=== PATIENT | female | born 1965 | race African-American/Black ===

== ENCOUNTER 2023-02-15 16:54 | Inpatient (IN) | payer OTHER ==
[2023-02-15 18:29] VITALS: BMI 46.5
[2023-02-15] MEDS ORDERED: NICOTINE POLACRILEX 2 MG GUM BUC PRN (20:01)
[2023-02-15] MEDS ORDERED: guaiFENesin 600 MG TABLET.ER (FP) PO PRN (20:01)
[2023-02-15] MEDS ORDERED: LOPERAMIDE HCL 2 MG CAPSULE PO PRN (20:01)
[2023-02-15] MEDS ORDERED: AMMONIUM LACTATE 12% LOTION 225 GM BOTTLE TP PRN (20:01)
[2023-02-15] MEDS ORDERED: NALOXONE HCL (KLOXXADO) 8 MG SPRAY NS PRN (20:01)
[2023-02-15] MEDS ORDERED: IBUPROFEN 400 MG TABLET (FP) PO PRN (20:01)
[2023-02-15] MEDS ORDERED: NALOXONE HCL 0.4 MG/ML VIAL IM PRN (20:01)
[2023-02-15] MEDS ORDERED: POLYETHYLENE GLYCOL (HEALTHYLAX) 3350 17 GM PACKET PO PRN (20:01)
[2023-02-15] MEDS ORDERED: BENZONATATE 200 MG CAPSULE PO PRN (20:01)
[2023-02-15] MEDS ORDERED: BENZOCAINE/MENTHOL (CHLORASEPTIC ) LOZENGE MM PRN (20:01)
[2023-02-15] MEDS ORDERED: TUBERCULIN PPD 5 TU/0.1ML SYRINGE (IN PATIENT USE ONLY) ID ONE (21:00)
[2023-02-15] MEDS ORDERED: MELATONIN 5 MG TABLETS PO SCH (22:00)
[2023-02-15] MEDS: THIAMINE HCL 100 MG TABLET (FP) PO SCH (22:08)
[2023-02-16] MEDS: PRENATAL VITAMINS W/ FOLIC ACID TABLET (FP) PO SCH (10:12)
[2023-02-16] MEDS: ACETAMINOPHEN 325 MG TABLET (FP) PO PRN (10:13)
[2023-02-16] MEDS: NICOTINE 14 MG/24 HOURS TOPICAL PATCH TD SCH (10:14)
[2023-02-16 12:54] LABS: POTASSIUM 3.6 mmol/L (3.5-5.1)
[2023-02-16 12:56] LABS: CALCIUM 8.1 mg/dL (8.5-10.1)
[2023-02-16 12:57] LABS: ALBUMIN 2.5 g/dl (3.4-5.0); BLOOD UREA NITROGEN 15.3 mg/dL (7-18)
[2023-02-16 13:01] LABS: BILIRUBIN,TOTAL 0.6 mg/dL (0.2-1); CREATININE 0.6 mg/dL (0.55-1.3)
[2023-02-16] MEDS ORDERED: PATIENT'S OWN MEDICATION (NON-FORMULARY) (Dolutegravir/Rilpivirine [Juluca 50-25 Mg Tablet PO SCH (13:15)
[2023-02-16 13:19] LABS: HEMATOCRIT 31.6 % (32.4-45.2); HEMOGLOBIN 10.6 GM/dL (10.7-15.3); MCH 27.5 pg (25.7-33.7); MCHC 33.6 g/dl (32.0-36.0); MEAN CELL VOLUME 81.9 fl (80-96); PLATELET COUNT 222 10^3/uL (134-434); RBC 3.86 M/mm3 (3.60-5.2); RDW 13.8 % (11.6-15.6); WHITE BLOOD COUNT 5.8 K/mm3 (4.0-10.0)
[2023-02-16] MEDS ORDERED: DOLUTEGRAVIR SODIUM 50 MG TABLET (NON-FORMULARY) PO ONE (13:45)
[2023-02-16] MEDS ORDERED: RILPIVIRINE HCL 25 MG TABLET PO ONE (13:45)
[2023-02-16] MEDS: THIAMINE HCL 100 MG TABLET (FP) PO SCH (21:27)
[2023-02-16] MEDS: BENZTROPINE MESYLATE 1 MG TABLET PO SCH (21:27)
[2023-02-16] MEDS: HALOPERIDOL 5 MG TABLET PO SCH (21:27)
[2023-02-16] MEDS: QUEtiapine FUMARATE 50 MG TABLET PO SCH (21:27)
[2023-02-16] MEDS: IBUPROFEN 600 MG TABLET (FP) PO PRN (21:29)
[2023-02-16] MEDS ORDERED: HALOPERIDOL 5 MG TABLET PO SCH (22:00)
[2023-02-17] MEDS: RILPIVIRINE HCL 25 MG TABLET PO SCH (07:14)
[2023-02-17] MEDS: DOLUTEGRAVIR SODIUM 50 MG TABLET (NON-FORMULARY) PO SCH (07:14)
[2023-02-17] MEDS: PRENATAL VITAMINS W/ FOLIC ACID TABLET (FP) PO SCH (10:08)
[2023-02-17] MEDS: NICOTINE 14 MG/24 HOURS TOPICAL PATCH TD SCH (10:08)
[2023-02-17] MEDS: MAGNESIUM HYDROX 2400MG/30ML ORAL SUSPENSION 30 ML CUP PO PRN (13:15)
[2023-02-17] MEDS: MAG HYDROX/AL HYDROX/SIMETH 30 ML UNIT-DOSE CUP PO PRN (16:34)
[2023-02-17] MEDS: THIAMINE HCL 100 MG TABLET (FP) PO SCH (21:23)
[2023-02-17] MEDS: QUEtiapine FUMARATE 50 MG TABLET PO SCH (21:23)
[2023-02-17] MEDS: HALOPERIDOL 5 MG TABLET PO SCH (21:23)
[2023-02-17] MEDS: BENZTROPINE MESYLATE 1 MG TABLET PO SCH (21:23)
[2023-02-18] MEDS: DOLUTEGRAVIR SODIUM 50 MG TABLET (NON-FORMULARY) PO SCH (07:11)
[2023-02-18] MEDS: RILPIVIRINE HCL 25 MG TABLET PO SCH (07:11)
[2023-02-18] MEDS: hydrOXYzine PAMOATE 25 MG CAPSULE (FP) PO PRN (09:57)
[2023-02-18] MEDS: PRENATAL VITAMINS W/ FOLIC ACID TABLET (FP) PO SCH (09:57)
[2023-02-18] MEDS: NICOTINE 14 MG/24 HOURS TOPICAL PATCH TD SCH (09:57)
[2023-02-18] MEDS: MAG HYDROX/AL HYDROX/SIMETH 30 ML UNIT-DOSE CUP PO PRN (10:02)
[2023-02-18] MEDS: IBUPROFEN 600 MG TABLET (FP) PO PRN (18:23)
[2023-02-18] MEDS: QUEtiapine FUMARATE 50 MG TABLET PO SCH (21:09)
[2023-02-18] MEDS: BENZTROPINE MESYLATE 1 MG TABLET PO SCH (21:09)
[2023-02-18] MEDS: HALOPERIDOL 5 MG TABLET PO SCH (21:10)
[2023-02-18] MEDS: THIAMINE HCL 100 MG TABLET (FP) PO SCH (21:10)
[2023-02-19] MEDS: RILPIVIRINE HCL 25 MG TABLET PO SCH (07:12)
[2023-02-19] MEDS: DOLUTEGRAVIR SODIUM 50 MG TABLET (NON-FORMULARY) PO SCH (07:12)
[2023-02-19] MEDS: IBUPROFEN 600 MG TABLET (FP) PO PRN ×3 (07:40→20:36)
[2023-02-19] MEDS: PRENATAL VITAMINS W/ FOLIC ACID TABLET (FP) PO SCH (10:01)
[2023-02-19] MEDS: NICOTINE 14 MG/24 HOURS TOPICAL PATCH TD SCH (10:02)
[2023-02-19 13:10] LABS: URINE APPEARANCE CLEAR; URINE BILIRUBIN NEGATIVE (NEGATIVE); URINE COLOR YELLOW; URINE GLUCOSE (UA) NEGATIVE (NEGATIVE); URINE KETONE NEGATIVE (NEGATIVE); URINE LEUK ESTERASE NEGATIVE (NEGATIVE); URINE NITRITE NEGATIVE (NEGATIVE); URINE PROTEIN NEGATIVE (NEGATIVE)
[2023-02-19] MEDS: THIAMINE HCL 100 MG TABLET (FP) PO SCH (21:06)
[2023-02-19] MEDS: BENZTROPINE MESYLATE 1 MG TABLET PO SCH (21:06)
[2023-02-19] MEDS: HALOPERIDOL 5 MG TABLET PO SCH (21:06)
[2023-02-19] MEDS: QUEtiapine FUMARATE 50 MG TABLET PO SCH (21:06)
[2023-02-20] MEDS: DOLUTEGRAVIR SODIUM 50 MG TABLET (NON-FORMULARY) PO SCH (07:02)
[2023-02-20] MEDS: RILPIVIRINE HCL 25 MG TABLET PO SCH (07:02)
[2023-02-20] MEDS: IBUPROFEN 600 MG TABLET (FP) PO PRN (07:40)
[2023-02-20] MEDS: NICOTINE 14 MG/24 HOURS TOPICAL PATCH TD SCH (10:26)
[2023-02-20] MEDS: PRENATAL VITAMINS W/ FOLIC ACID TABLET (FP) PO SCH (10:26)
[2023-02-20] MEDS: THIAMINE HCL 100 MG TABLET (FP) PO SCH (22:55)
[2023-02-20] MEDS: QUEtiapine FUMARATE 50 MG TABLET PO SCH (22:55)
[2023-02-20] MEDS: HALOPERIDOL 5 MG TABLET PO SCH (22:55)
[2023-02-20] MEDS: BENZTROPINE MESYLATE 1 MG TABLET PO SCH (22:55)
[2023-02-21] MEDS: DOLUTEGRAVIR SODIUM 50 MG TABLET (NON-FORMULARY) PO SCH (07:11)
[2023-02-21] MEDS: RILPIVIRINE HCL 25 MG TABLET PO SCH (07:11)
[2023-02-21] MEDS: NICOTINE 14 MG/24 HOURS TOPICAL PATCH TD SCH (10:12)
[2023-02-21] MEDS: PRENATAL VITAMINS W/ FOLIC ACID TABLET (FP) PO SCH (10:12)
[2023-02-21] MEDS: THIAMINE HCL 100 MG TABLET (FP) PO SCH (21:11)
[2023-02-21] MEDS: QUEtiapine FUMARATE 50 MG TABLET PO SCH (21:11)
[2023-02-21] MEDS: HALOPERIDOL 5 MG TABLET PO SCH (21:11)
[2023-02-21] MEDS: BENZTROPINE MESYLATE 1 MG TABLET PO SCH (21:11)
[2023-02-22] MEDS: RILPIVIRINE HCL 25 MG TABLET PO SCH (07:59)
[2023-02-22] MEDS: DOLUTEGRAVIR SODIUM 50 MG TABLET (NON-FORMULARY) PO SCH (07:59)
[2023-02-22] MEDS: NICOTINE 14 MG/24 HOURS TOPICAL PATCH TD SCH (09:41)
[2023-02-22] MEDS: PRENATAL VITAMINS W/ FOLIC ACID TABLET (FP) PO SCH (09:41)
[2023-02-22] MEDS: HALOPERIDOL 5 MG TABLET PO SCH (21:07)
[2023-02-22] MEDS: THIAMINE HCL 100 MG TABLET (FP) PO SCH (21:07)
[2023-02-22] MEDS: QUEtiapine FUMARATE 50 MG TABLET PO SCH (21:08)
[2023-02-22] MEDS: ACETAMINOPHEN 325 MG TABLET (FP) PO PRN (21:08)
[2023-02-22] MEDS: BENZTROPINE MESYLATE 1 MG TABLET PO SCH (21:08)
[2023-02-23] MEDS: RILPIVIRINE HCL 25 MG TABLET PO SCH (07:03)
[2023-02-23] MEDS: DOLUTEGRAVIR SODIUM 50 MG TABLET (NON-FORMULARY) PO SCH (07:03)
[2023-02-23] MEDS: NICOTINE 14 MG/24 HOURS TOPICAL PATCH TD SCH (09:54)
[2023-02-23] MEDS: PRENATAL VITAMINS W/ FOLIC ACID TABLET (FP) PO SCH (09:54)
[2023-02-23] MEDS: QUEtiapine FUMARATE 50 MG TABLET PO SCH (21:07)
[2023-02-23] MEDS: hydrOXYzine PAMOATE 25 MG CAPSULE (FP) PO PRN (21:07)
[2023-02-23] MEDS: HALOPERIDOL 5 MG TABLET PO SCH (21:07)
[2023-02-23] MEDS: BENZTROPINE MESYLATE 1 MG TABLET PO SCH (21:07)
[2023-02-23] MEDS: THIAMINE HCL 100 MG TABLET (FP) PO SCH (21:07)
[2023-02-23] MEDS: COLLOIDAL OATMEAL 1 BAR EACH TP PRN (21:09)
[2023-02-24] MEDS: DOLUTEGRAVIR SODIUM 50 MG TABLET (NON-FORMULARY) PO SCH (07:10)
[2023-02-24] MEDS: RILPIVIRINE HCL 25 MG TABLET PO SCH (07:10)
[2023-02-24] MEDS: PRENATAL VITAMINS W/ FOLIC ACID TABLET (FP) PO SCH (10:30)
[2023-02-24] MEDS: NICOTINE 14 MG/24 HOURS TOPICAL PATCH TD SCH (10:31)
[2023-02-24] MEDS: ACETAMINOPHEN 325 MG TABLET (FP) PO PRN (17:01)
[2023-02-24] MEDS: HALOPERIDOL 5 MG TABLET PO SCH (21:17)
[2023-02-24] MEDS: THIAMINE HCL 100 MG TABLET (FP) PO SCH (21:17)
[2023-02-24] MEDS: QUEtiapine FUMARATE 50 MG TABLET PO SCH (21:17)
[2023-02-24] MEDS: BENZTROPINE MESYLATE 1 MG TABLET PO SCH (21:17)
[2023-02-25] MEDS: RILPIVIRINE HCL 25 MG TABLET PO SCH (07:35)
[2023-02-25] MEDS: DOLUTEGRAVIR SODIUM 50 MG TABLET (NON-FORMULARY) PO SCH (07:35)
[2023-02-25] MEDS: PRENATAL VITAMINS W/ FOLIC ACID TABLET (FP) PO SCH (09:57)
[2023-02-25] MEDS: NICOTINE 14 MG/24 HOURS TOPICAL PATCH TD SCH (09:57)
[2023-02-25] MEDS: BENZTROPINE MESYLATE 1 MG TABLET PO SCH (21:31)
[2023-02-25] MEDS: HALOPERIDOL 5 MG TABLET PO SCH (21:31)
[2023-02-25] MEDS: THIAMINE HCL 100 MG TABLET (FP) PO SCH (21:31)
[2023-02-25] MEDS: QUEtiapine FUMARATE 50 MG TABLET PO SCH (21:31)
[2023-02-26] MEDS: DOLUTEGRAVIR SODIUM 50 MG TABLET (NON-FORMULARY) PO SCH (07:10)
[2023-02-26] MEDS: RILPIVIRINE HCL 25 MG TABLET PO SCH (07:10)
[2023-02-26] MEDS: PRENATAL VITAMINS W/ FOLIC ACID TABLET (FP) PO SCH (10:04)
[2023-02-26] MEDS: NICOTINE 14 MG/24 HOURS TOPICAL PATCH TD SCH (10:04)
[2023-02-26] MEDS: HALOPERIDOL 5 MG TABLET PO SCH (21:32)
[2023-02-26] MEDS: QUEtiapine FUMARATE 50 MG TABLET PO SCH (21:32)
[2023-02-26] MEDS: THIAMINE HCL 100 MG TABLET (FP) PO SCH (21:32)
[2023-02-26] MEDS: BENZTROPINE MESYLATE 1 MG TABLET PO SCH (21:32)
[2023-02-26] MEDS: MAGNESIUM HYDROX 2400MG/30ML ORAL SUSPENSION 30 ML CUP PO PRN (21:33)
[2023-02-27] MEDS: RILPIVIRINE HCL 25 MG TABLET PO SCH (07:17)
[2023-02-27] MEDS: DOLUTEGRAVIR SODIUM 50 MG TABLET (NON-FORMULARY) PO SCH (07:17)
[2023-02-27] MEDS: PRENATAL VITAMINS W/ FOLIC ACID TABLET (FP) PO SCH (10:08)
[2023-02-27] MEDS: NICOTINE 14 MG/24 HOURS TOPICAL PATCH TD SCH (10:08)
[2023-02-27] MEDS: BENZTROPINE MESYLATE 1 MG TABLET PO SCH (21:05)
[2023-02-27] MEDS: HALOPERIDOL 5 MG TABLET PO SCH (21:05)
[2023-02-27] MEDS: THIAMINE HCL 100 MG TABLET (FP) PO SCH (21:05)
[2023-02-27] MEDS: QUEtiapine FUMARATE 50 MG TABLET PO SCH (21:05)
[2023-02-28] MEDS: DOLUTEGRAVIR SODIUM 50 MG TABLET (NON-FORMULARY) PO SCH (07:08)
[2023-02-28] MEDS: RILPIVIRINE HCL 25 MG TABLET PO SCH (07:08)
[2023-02-28] MEDS: PRENATAL VITAMINS W/ FOLIC ACID TABLET (FP) PO SCH (10:05)
[2023-02-28] MEDS: NICOTINE 14 MG/24 HOURS TOPICAL PATCH TD SCH (10:05)
[2023-02-28] MEDS: ACETAMINOPHEN 325 MG TABLET (FP) PO PRN (15:57)
[2023-02-28] MEDS: BENZTROPINE MESYLATE 1 MG TABLET PO SCH (21:20)
[2023-02-28] MEDS: QUEtiapine FUMARATE 50 MG TABLET PO SCH (21:20)
[2023-02-28] MEDS: THIAMINE HCL 100 MG TABLET (FP) PO SCH (21:20)
[2023-02-28] MEDS: HALOPERIDOL 5 MG TABLET PO SCH (21:20)
[2023-02-28] MEDS: hydrOXYzine PAMOATE 25 MG CAPSULE (FP) PO PRN (21:36)
[2023-03-01] MEDS: DOLUTEGRAVIR SODIUM 50 MG TABLET (NON-FORMULARY) PO SCH (07:23)
[2023-03-01] MEDS: RILPIVIRINE HCL 25 MG TABLET PO SCH (07:23)
[2023-03-01] MEDS: PRENATAL VITAMINS W/ FOLIC ACID TABLET (FP) PO SCH (09:42)
[2023-03-01] MEDS: NICOTINE 14 MG/24 HOURS TOPICAL PATCH TD SCH (09:43)
[2023-03-01] MEDS: IBUPROFEN 600 MG TABLET (FP) PO PRN (13:14)
[2023-03-01] MEDS: BENZTROPINE MESYLATE 1 MG TABLET PO SCH (21:30)
[2023-03-01] MEDS: QUEtiapine FUMARATE 50 MG TABLET PO SCH (21:30)
[2023-03-01] MEDS: HALOPERIDOL 5 MG TABLET PO SCH (21:30)
[2023-03-01] MEDS: THIAMINE HCL 100 MG TABLET (FP) PO SCH (21:30)
[2023-03-01] MEDS: hydrOXYzine PAMOATE 25 MG CAPSULE (FP) PO PRN (21:31)
[2023-03-02] MEDS: RILPIVIRINE HCL 25 MG TABLET PO SCH (07:12)
[2023-03-02] MEDS: DOLUTEGRAVIR SODIUM 50 MG TABLET (NON-FORMULARY) PO SCH (07:12)
[2023-03-02] MEDS: PRENATAL VITAMINS W/ FOLIC ACID TABLET (FP) PO SCH (09:44)
[2023-03-02] MEDS: NICOTINE 14 MG/24 HOURS TOPICAL PATCH TD SCH (09:44)
[2023-03-02] MEDS: BENZTROPINE MESYLATE 1 MG TABLET PO SCH (21:40)
[2023-03-02] MEDS: QUEtiapine FUMARATE 50 MG TABLET PO SCH (21:40)
[2023-03-02] MEDS: HALOPERIDOL 5 MG TABLET PO SCH (21:40)
[2023-03-02] MEDS: THIAMINE HCL 100 MG TABLET (FP) PO SCH (21:40)
[2023-03-03] MEDS: DOLUTEGRAVIR SODIUM 50 MG TABLET (NON-FORMULARY) PO SCH (07:04)
[2023-03-03] MEDS: RILPIVIRINE HCL 25 MG TABLET PO SCH (07:04)
[2023-03-03 07:57] VITALS: RESP 18
[2023-03-03] MEDS: NICOTINE 14 MG/24 HOURS TOPICAL PATCH TD SCH (09:56)
[2023-03-03] MEDS: PRENATAL VITAMINS W/ FOLIC ACID TABLET (FP) PO SCH (09:56)
[2023-03-03] MEDS: COLLOIDAL OATMEAL 1 BAR EACH TP PRN (09:58)
[2023-03-03] MEDS: MAGNESIUM HYDROX 2400MG/30ML ORAL SUSPENSION 30 ML CUP PO PRN (18:20)
[2023-03-03] MEDS: THIAMINE HCL 100 MG TABLET (FP) PO SCH (21:10)
[2023-03-03] MEDS: HALOPERIDOL 5 MG TABLET PO SCH (21:10)
[2023-03-03] MEDS: QUEtiapine FUMARATE 50 MG TABLET PO SCH (21:10)
[2023-03-03] MEDS: BENZTROPINE MESYLATE 1 MG TABLET PO SCH (21:10)
[2023-03-04] MEDS: RILPIVIRINE HCL 25 MG TABLET PO SCH (08:56)
[2023-03-04] MEDS: DOLUTEGRAVIR SODIUM 50 MG TABLET (NON-FORMULARY) PO SCH (08:56)
[2023-03-04] MEDS: MAGNESIUM HYDROX 2400MG/30ML ORAL SUSPENSION 30 ML CUP PO PRN (09:00)
[2023-03-04] MEDS: PRENATAL VITAMINS W/ FOLIC ACID TABLET (FP) PO SCH (09:03)
[2023-03-04] MEDS: NICOTINE 14 MG/24 HOURS TOPICAL PATCH TD SCH (09:03)
[2023-03-04] MEDS: THIAMINE HCL 100 MG TABLET (FP) PO SCH (21:37)
[2023-03-04] MEDS: BENZTROPINE MESYLATE 1 MG TABLET PO SCH (21:38)
[2023-03-04] MEDS: QUEtiapine FUMARATE 50 MG TABLET PO SCH (21:38)
[2023-03-04] MEDS: HALOPERIDOL 5 MG TABLET PO SCH (21:38)
[2023-03-05] MEDS: DOLUTEGRAVIR SODIUM 50 MG TABLET (NON-FORMULARY) PO SCH (07:00)
[2023-03-05] MEDS: RILPIVIRINE HCL 25 MG TABLET PO SCH (07:00)
[2023-03-05] MEDS: PRENATAL VITAMINS W/ FOLIC ACID TABLET (FP) PO SCH (10:36)
[2023-03-05] MEDS: NICOTINE 14 MG/24 HOURS TOPICAL PATCH TD SCH (10:37)
[2023-03-05] MEDS: hydrOXYzine PAMOATE 25 MG CAPSULE (FP) PO PRN (22:21)
[2023-03-05] MEDS: IBUPROFEN 600 MG TABLET (FP) PO PRN (22:21)
[2023-03-05] MEDS: HALOPERIDOL 5 MG TABLET PO SCH (22:21)
[2023-03-05] MEDS: QUEtiapine FUMARATE 50 MG TABLET PO SCH (22:21)
[2023-03-05] MEDS: THIAMINE HCL 100 MG TABLET (FP) PO SCH (22:21)
[2023-03-05] MEDS: BENZTROPINE MESYLATE 1 MG TABLET PO SCH (22:21)
[2023-03-06] MEDS: DOLUTEGRAVIR SODIUM 50 MG TABLET (NON-FORMULARY) PO SCH (07:43)
[2023-03-06] MEDS: RILPIVIRINE HCL 25 MG TABLET PO SCH (07:43)
[2023-03-06] MEDS: PRENATAL VITAMINS W/ FOLIC ACID TABLET (FP) PO SCH (10:15)
[2023-03-06] MEDS: NICOTINE 14 MG/24 HOURS TOPICAL PATCH TD SCH (10:15)
[2023-03-06] MEDS: BENZTROPINE MESYLATE 1 MG TABLET PO SCH (22:42)
[2023-03-06] MEDS: HALOPERIDOL 5 MG TABLET PO SCH (22:42)
[2023-03-06] MEDS: THIAMINE HCL 100 MG TABLET (FP) PO SCH (22:42)
[2023-03-06] MEDS: QUEtiapine FUMARATE 50 MG TABLET PO SCH (22:42)
[2023-03-06] MEDS: hydrOXYzine PAMOATE 25 MG CAPSULE (FP) PO PRN (22:42)
[2023-03-07] MEDS: RILPIVIRINE HCL 25 MG TABLET PO SCH (09:42)
[2023-03-07] MEDS: NICOTINE 14 MG/24 HOURS TOPICAL PATCH TD SCH (09:42)
[2023-03-07] MEDS: DOLUTEGRAVIR SODIUM 50 MG TABLET (NON-FORMULARY) PO SCH (09:42)
[2023-03-07] MEDS: PRENATAL VITAMINS W/ FOLIC ACID TABLET (FP) PO SCH (09:42)
[2023-03-07] MEDS: HALOPERIDOL 5 MG TABLET PO SCH (22:04)
[2023-03-07] MEDS: QUEtiapine FUMARATE 50 MG TABLET PO SCH (22:04)
[2023-03-07] MEDS: BENZTROPINE MESYLATE 1 MG TABLET PO SCH (22:04)
[2023-03-07] MEDS: THIAMINE HCL 100 MG TABLET (FP) PO SCH (22:04)
[2023-03-08] MEDS: NICOTINE 14 MG/24 HOURS TOPICAL PATCH TD SCH (10:23)
[2023-03-08] MEDS: DOLUTEGRAVIR SODIUM 50 MG TABLET (NON-FORMULARY) PO SCH (10:23)
[2023-03-08] MEDS: PRENATAL VITAMINS W/ FOLIC ACID TABLET (FP) PO SCH (10:23)
[2023-03-08] MEDS: RILPIVIRINE HCL 25 MG TABLET PO SCH (10:24)
[2023-03-08] MEDS: BENZTROPINE MESYLATE 1 MG TABLET PO SCH (21:26)
[2023-03-08] MEDS: HALOPERIDOL 5 MG TABLET PO SCH (21:26)
[2023-03-08] MEDS: QUEtiapine FUMARATE 50 MG TABLET PO SCH (21:26)
[2023-03-08] MEDS: THIAMINE HCL 100 MG TABLET (FP) PO SCH (21:26)
[2023-03-09] MEDS: PRENATAL VITAMINS W/ FOLIC ACID TABLET (FP) PO SCH (10:14)
[2023-03-09] MEDS: DOLUTEGRAVIR SODIUM 50 MG TABLET (NON-FORMULARY) PO SCH (10:14)
[2023-03-09] MEDS: RILPIVIRINE HCL 25 MG TABLET PO SCH (10:15)
[2023-03-09] MEDS: NICOTINE 14 MG/24 HOURS TOPICAL PATCH TD SCH (10:15)
[2023-03-09] MEDS: HALOPERIDOL 5 MG TABLET PO SCH (21:41)
[2023-03-09] MEDS: QUEtiapine FUMARATE 50 MG TABLET PO SCH (21:41)
[2023-03-09] MEDS: BENZTROPINE MESYLATE 1 MG TABLET PO SCH (21:42)
[2023-03-09] MEDS: THIAMINE HCL 100 MG TABLET (FP) PO SCH (21:42)
[2023-03-10] MEDS: PRENATAL VITAMINS W/ FOLIC ACID TABLET (FP) PO SCH (10:26)
[2023-03-10] MEDS: DOLUTEGRAVIR SODIUM 50 MG TABLET (NON-FORMULARY) PO SCH (10:27)
[2023-03-10] MEDS: NICOTINE 14 MG/24 HOURS TOPICAL PATCH TD SCH (10:27)
[2023-03-10] MEDS: RILPIVIRINE HCL 25 MG TABLET PO SCH (10:28)
[2023-03-10] MEDS: COLLOIDAL OATMEAL 1 BAR EACH TP PRN (17:42)
[2023-03-10] MEDS: QUEtiapine FUMARATE 50 MG TABLET PO SCH (21:16)
[2023-03-10] MEDS: THIAMINE HCL 100 MG TABLET (FP) PO SCH (21:16)
[2023-03-10] MEDS: hydrOXYzine PAMOATE 25 MG CAPSULE (FP) PO PRN (21:17)
[2023-03-10] MEDS: HALOPERIDOL 5 MG TABLET PO SCH (21:17)
[2023-03-10] MEDS: BENZTROPINE MESYLATE 1 MG TABLET PO SCH (21:17)
[2023-03-11] MEDS: PRENATAL VITAMINS W/ FOLIC ACID TABLET (FP) PO SCH (10:17)
[2023-03-11] MEDS: NICOTINE 14 MG/24 HOURS TOPICAL PATCH TD SCH (10:18)
[2023-03-11] MEDS: DOLUTEGRAVIR SODIUM 50 MG TABLET (NON-FORMULARY) PO SCH (10:18)
[2023-03-11] MEDS: RILPIVIRINE HCL 25 MG TABLET PO SCH (10:18)
[2023-03-11] MEDS: BENZTROPINE MESYLATE 1 MG TABLET PO SCH (21:16)
[2023-03-11] MEDS: ACETAMINOPHEN 325 MG TABLET (FP) PO PRN (21:16)
[2023-03-11] MEDS: HALOPERIDOL 5 MG TABLET PO SCH (21:16)
[2023-03-11] MEDS: THIAMINE HCL 100 MG TABLET (FP) PO SCH (21:16)
[2023-03-11] MEDS: QUEtiapine FUMARATE 50 MG TABLET PO SCH (21:16)
[2023-03-11] MEDS: hydrOXYzine PAMOATE 25 MG CAPSULE (FP) PO PRN (21:18)
[2023-03-12] MEDS: RILPIVIRINE HCL 25 MG TABLET PO SCH (10:46)
[2023-03-12] MEDS: PRENATAL VITAMINS W/ FOLIC ACID TABLET (FP) PO SCH (10:47)
[2023-03-12] MEDS: DOLUTEGRAVIR SODIUM 50 MG TABLET (NON-FORMULARY) PO SCH ×2 (10:48→15:38)
[2023-03-12] MEDS: NICOTINE 14 MG/24 HOURS TOPICAL PATCH TD SCH (12:15)
[2023-03-12] MEDS: QUEtiapine FUMARATE 50 MG TABLET PO SCH (21:16)
[2023-03-12] MEDS: HALOPERIDOL 5 MG TABLET PO SCH (21:16)
[2023-03-12] MEDS: THIAMINE HCL 100 MG TABLET (FP) PO SCH (21:16)
[2023-03-12] MEDS: BENZTROPINE MESYLATE 1 MG TABLET PO SCH (21:16)
[2023-03-13] MEDS: DOLUTEGRAVIR SODIUM 50 MG TABLET (NON-FORMULARY) PO SCH (08:58)
[2023-03-13] MEDS: RILPIVIRINE HCL 25 MG TABLET PO SCH (08:58)
[2023-03-13] MEDS: PRENATAL VITAMINS W/ FOLIC ACID TABLET (FP) PO SCH (09:34)
[2023-03-13] MEDS: NICOTINE 14 MG/24 HOURS TOPICAL PATCH TD SCH (09:34)
[2023-03-13] MEDS: QUEtiapine FUMARATE 50 MG TABLET PO SCH (21:03)
[2023-03-13] MEDS: HALOPERIDOL 5 MG TABLET PO SCH (21:03)
[2023-03-13] MEDS: THIAMINE HCL 100 MG TABLET (FP) PO SCH (21:03)
[2023-03-13] MEDS: BENZTROPINE MESYLATE 1 MG TABLET PO SCH (21:03)
[2023-03-14 08:23] VITALS: PULSE 69
[2023-03-14] MEDS: NICOTINE 14 MG/24 HOURS TOPICAL PATCH TD SCH (09:44)
[2023-03-14] MEDS: PRENATAL VITAMINS W/ FOLIC ACID TABLET (FP) PO SCH (09:44)
[2023-03-14] MEDS: RILPIVIRINE HCL 25 MG TABLET PO SCH (09:45)
[2023-03-14] MEDS: DOLUTEGRAVIR SODIUM 50 MG TABLET (NON-FORMULARY) PO SCH (09:45)
[2023-03-14] MEDS: HALOPERIDOL 5 MG TABLET PO SCH (21:30)
[2023-03-14] MEDS: BENZTROPINE MESYLATE 1 MG TABLET PO SCH (21:30)
[2023-03-14] MEDS: THIAMINE HCL 100 MG TABLET (FP) PO SCH (21:30)
[2023-03-14] MEDS: QUEtiapine FUMARATE 50 MG TABLET PO SCH (21:30)
[2023-03-15 07:30] VITALS: BP 127/75; TEMP 97.1
[2023-03-15] MEDS: RILPIVIRINE HCL 25 MG TABLET PO SCH (09:42)
[2023-03-15] MEDS: PRENATAL VITAMINS W/ FOLIC ACID TABLET (FP) PO SCH (09:42)
[2023-03-15] MEDS: DOLUTEGRAVIR SODIUM 50 MG TABLET (NON-FORMULARY) PO SCH (09:42)
[2023-03-15] MEDS: NICOTINE 14 MG/24 HOURS TOPICAL PATCH TD SCH (11:07)
== END 2023-03-15 11:00 | disposition home or self-care (01) | DRG 772 ==
LOC: YASAS 16:54 → Y5N 20:18
PROVIDERS: ADMIT Allergy & Immunology; ATTEND Psychiatry & Neurology Pain Medicine
PROC: HZ42ZZZ Group Counseling for Substance Abuse Treatment, Cognitive-Behavioral (ICD-10-PCS; principal; 2023-02-15)
DX: F10.20 Alcohol dependence, uncomplicated (principal); F14.20 Cocaine dependence, uncomplicated; F17.210 Nicotine dependence, cigarettes, uncomplicated; F20.9 Schizophrenia, unspecified; F19.282 Other psychoactive substance dependence with psychoactive substance-induced sleep disorder; F19.24 Other psychoactive substance dependence with psychoactive substance-induced mood disorder; F41.9 Anxiety disorder, unspecified; F42.9 Obsessive-compulsive disorder, unspecified; Z21 Asymptomatic human immunodeficiency virus [HIV] infection status; N18.9 Chronic kidney disease, unspecified; E66.01 Morbid (severe) obesity due to excess calories; Z68.42 Body mass index [BMI] 45.0-49.9, adult
CPT/HCPCS: 36415; 71046-TC-FY; 80053; 81003; 81025; 85027; 86780; 93005; 93010; C9803-CS; U0003; U0005